=== PATIENT | female | born 1970 | race Caucasian/White ===

== ENCOUNTER 2016-08-17 05:44 | Emergency (ER) | payer OTHER ==
[~2016-08-17] VITALS: Ht 152.4 cm; Wt 61.2 kg
[2016-08-17 05:48] VITALS: BP 150/78
--- NOTE | 2016-08-17 05:54 | NUR ---
PATIENT AMBULATED TO ER BED 7.
--- NOTE | 2016-08-17 06:02 | NUR ---
46/F CAME IN TO ER WITH C/O LOWER BACK PAIN X1 WK. NO TRAUMA NOR INJURY. WENT TO URGENT CARE, GOT TRAMADOL, TODAY PAIN WORSEN. HX. FIBROMYALGIA, ARTHRITIS. PAIN SCALE 10/10, ACHING, STABBING RADIATING TO BILATERAL LOWER EXTREMITIES. SKIN IS PINK/WARM/DRY; AAOX4 WITH EVEN AND STEADY GAIT; LUNGS CLEAR BL; HR EVEN AND REGULAR; PATIENT POSITIONED FOR COMFORT; HOB ELEVATED; BEDRAILS UP X2; BED DOWN. ER MD MADE AWARE OF PT STATUS.
--- NOTE | 2016-08-17 06:06 | NUR ---
DR. MASON AT BEDSIDE EVALUATING PT.
[2016-08-17] MEDS ORDERED: HYDROcodone/APAP 10/325 MG 1 TAB TAB PO STA (06:13)
[2016-08-17] MEDS ORDERED: CYCLOBENZAPRINE 10 MG TAB PO ONE (06:15)
[2016-08-17] MEDS ORDERED: IBUPROFEN 800 MG TAB PO ONE (06:15)
[2016-08-17] MEDS ORDERED: METHOCARBAMOL 500 MG TAB PO SCH (06:25)
--- NOTE | 2016-08-17 06:29 | NUR ---
MEDS GIVEN ORDERED. PT TOLERATED MEDS WELL.
--- NOTE | 2016-08-17 06:46 | NUR ---
DR. MASON AT BEDSIDE TALKING TO THE PATIENT.
--- NOTE | 2016-08-17 07:09 | NUR ---
PT COMPLAINT OF STOMACH PAIN. PT SAID SHE HAS GASTRITIS BUT FORGOT TO MENTION IT EARLIER. DR. MASON AWARE.
[2016-08-17] MEDS ORDERED: ALUMINUM HYD/MAG/SIMETHICONE 30 ML UDC PO ONE (07:10)
[2016-08-17 07:30] VITALS: BP 145/80
--- NOTE | 2016-08-17 07:30 | NUR ---
Patient discharged with v/s stable. Written and verbal after care instructions given and explained. Patient alert, oriented and verbalized understanding of instructions. Ambulatory with steady gait. All questions addressed prior to discharge. ID band removed. Patient advised to follow up with PMD. Rx of NORCO 10MG-325MG TAB 1 TAB EVERY 6 HOURS BY MOUTH, IBUPROFEN 800MG 1 TAB ORALLY 3 TIMES A DAY NEEDED FOR PAIN, ROBAXIN 750MG 1 TAB 4 TIMES A DAY NEEDED FOR PAIN given. Patient educated on indication of medication including possible reaction and side effects. Opportunity to ask questions provided and answered.
== END 2016-08-17 07:30 | disposition home or self-care (01) ==
LOC: MED 05:44
DX: M54.5 Low back pain (principal); M79.7 Fibromyalgia; I10 Essential (primary) hypertension; F17.210 Nicotine dependence, cigarettes, uncomplicated; M19.90 Unspecified osteoarthritis, unspecified site; Z88.0 Allergy status to penicillin; Z88.6 Allergy status to analgesic agent

== ENCOUNTER 2016-10-13 18:28 | Emergency (ER) | payer OTHER ==
[~2016-10-13] VITALS: Ht 152.4 cm; Wt 62.7 kg
[2016-10-13 18:35] VITALS: BP 134/83
--- NOTE | 2016-10-13 18:39 | NUR ---
PATIENT TO BED 8
--- NOTE | 2016-10-13 19:30 | NUR ---
Patient being evaluated by DR. QUEVEDO at bedside.
[2016-10-13] MEDS ORDERED: NACL 0.9% 1,000 ML IV ONE (19:33)
[2016-10-13] MEDS ORDERED: KETOROLAC 30 MG/ML VIAL IVP ONE (19:35)
--- NOTE | 2016-10-13 20:55 | NUR ---
46/F BIB FAMILY TO ED C/O BODY ACHES x LAST NIGHT 0100. PAIN 10/10 SHARP NON-RADIATING. DENIES INJURY OR TRAUMA. DENIES N/V/D; SKIN IS PINK/WARM/DRY; AAOX4 WITH EVEN AND STEADY GAIT; LUNGS CLEAR BL; HR EVEN AND REGULAR; PT DENIES ANY FEVER, CP, SOB, OR COUGH AT THIS TIME; PATIENT STATES PAIN OF 10/10 AT THIS TIME; VSS; PATIENT POSITIONED FOR COMFORT; HOB ELEVATED; BEDRAILS UP X2; BED DOWN. ER MD MADE AWARE OF PT STATUS.
[2016-10-13 20:56] LABS: ANION GAP 11.9 (8-16); CALCIUM 8.8 mg/dL (8.5-10.1); CARBON DIOXIDE 28.1 mmol/L (21-32); CREATININE 1.2 mg/dL (0.6-1.3)
[2016-10-13 21:02] LABS: ALBUMIN 3.8 g/dL (3.4-5.0); TOTAL BILIRUBIN 0.6 mg/dL (0.0-1.0)
[2016-10-13 21:10] VITALS: BP 120/79
--- NOTE | 2016-10-13 21:10 | NUR ---
Patient discharged with v/s stable. Written and verbal after care instructions given and explained. Patient alert, oriented and verbalized understanding of instructions. Ambulatory with steady gait. All questions addressed prior to discharge. ID band removed. Patient advised to follow up with PMD. Rx of NORCO 5MG-325MG Q4HRS PRN, ROBAXIN 500MG QID, NAPROSYN 500MG BID, given. Patient educated on indication of medication including possible reaction and side effects. Opportunity to ask questions provided and answered.
== END 2016-10-13 21:10 | disposition home or self-care (01) ==
LOC: MED 18:28
DX: M79.1 Myalgia (principal); I10 Essential (primary) hypertension; F17.210 Nicotine dependence, cigarettes, uncomplicated; Z90.49 Acquired absence of other specified parts of digestive tract; Z90.710 Acquired absence of both cervix and uterus; Z88.0 Allergy status to penicillin; Z88.5 Allergy status to narcotic agent
CPT/HCPCS: 36415; 80053; 81002; 81025; 96361; 96374; 99284; J1885; J7030

== ENCOUNTER 2016-11-10 00:40 | Emergency (ER) | payer OTHER ==
[~2016-11-10] VITALS: Ht 152.4 cm; Wt 63.0 kg
[2016-11-10 00:45] VITALS: BP 159/113
--- NOTE | 2016-11-10 01:07 | NUR ---
PT. AMBULATES TO ER OF 3
--- NOTE | 2016-11-10 01:11 | NUR ---
46Y/F PT. PRESENTS TO ED WITH C/O NON PRODUCTIVE COUGH X 2 DAYS. TOOK NIQUAL 1 HR AGO. HX. FIBROMYALGIA, ARTHRITIS. AAO X4, AMBULATORY WITH STEADY GAIT. RESPIRATIONS ROOM AIR, EVEN AND UNLABORED. BL LUNG CLEAR, C/O NON-PRODUCTIVE COUGH. SKIN WARM AND DRY. C/O CHEST TIGHNESS 12/14. VSS, ER MADE AWARE OF PT. STATUS.
--- NOTE | 2016-11-10 01:26 | NUR ---
Patient being evaluated by physician.
[2016-11-10 02:00] VITALS: BP 142/97
--- NOTE | 2016-11-10 02:00 | NUR ---
Patient discharged with v/s stable. Written and verbal after care instructions given and explained. Patient alert, oriented and verbalized understanding of instructions. Ambulatory with steady gait. All questions addressed prior to discharge. ID band removed. Patient advised to follow up with PMD. Rx of Phenergan with codeine syrup and Z-pack given. Patient educated on indication of medication including possible reaction and side effects. Opportunity to ask questions provided and answered.
== END 2016-11-10 02:00 | disposition home or self-care (01) ==
LOC: MED 00:40
DX: J06.9 Acute upper respiratory infection, unspecified (principal); F17.210 Nicotine dependence, cigarettes, uncomplicated; I10 Essential (primary) hypertension; M79.7 Fibromyalgia; Z88.0 Allergy status to penicillin; Z88.5 Allergy status to narcotic agent; Z90.49 Acquired absence of other specified parts of digestive tract; Z90.710 Acquired absence of both cervix and uterus
CPT/HCPCS: 99283

== ENCOUNTER 2017-04-11 02:59 | Emergency (ER) | payer OTHER ==
[~2017-04-11] VITALS: Ht 152.4 cm; Wt 63.5 kg
[2017-04-11 03:02] VITALS: BP 147/90
--- NOTE | 2017-04-11 03:08 | NUR ---
PT TAKEN TO BED 11
[2017-04-11] MEDS ORDERED: diphenhydrAMINE 50 MG/ML VIAL IM ONE (03:15)
[2017-04-11] MEDS ORDERED: PROCHLORPERAZINE 10 MG/2 ML VIAL IM ONE (03:15)
--- NOTE | 2017-04-11 04:00 | NUR ---
DPatient discharged with v/s stable. Written and verbal after care instructions given and explained. Patient alert, oriented and verbalized understanding of instructions. Ambulatory with steady gait. All questions addressed prior to discharge. ID band removed. Patient advised to follow up with PMD. Rx of BENADRYL AND COMPAZINE given. Patient educated on indication of medication including possible reaction and side effects. Opportunity to ask questions provided and answered.
[2017-04-11 04:04] VITALS: BP 138/72
== END 2017-04-11 04:00 | disposition home or self-care (01) ==
LOC: MED 02:59
DX: R51 Headache (principal); R11.0 Nausea; I10 Essential (primary) hypertension; Z88.0 Allergy status to penicillin; Z88.5 Allergy status to narcotic agent
CPT/HCPCS: 96372; 99284; J0780; J1200

== ENCOUNTER 2021-08-21 07:18 | Day surgery (SDC) | payer OTHER ==
[~2021-08-21] VITALS: Ht 152.4 cm; Wt 78.0 kg
[2021-08-21] MEDS ORDERED: diphenhydrAMINE 50 MG/ML VIAL ONE (08:07)
[2021-08-21] MEDS ORDERED: fentaNYL citrate 0.05 MG/ML VIAL ONE (08:08)
[2021-08-21] MEDS ORDERED: DIAZEPAM PFS 10 MG/2 ML SYR ONE (08:09)
[2021-08-21] MEDS ORDERED: MIDAZOLAM 5 MG/5 ML VIAL ONE (08:10)
[2021-08-21] MEDS ORDERED: fentaNYL citrate 0.05 MG/ML VIAL IVP ONE (17:00)
== END 2021-08-21 09:48 | disposition home or self-care (01) ==
LOC: MOR 07:18 → MMU 07:19 → MOR 09:48
PROVIDERS: ATTEND Internal Medicine Gastroenterology
DX: R10.9 Unspecified abdominal pain (principal); K63.5 Polyp of colon; K21.9 Gastro-esophageal reflux disease without esophagitis; M79.7 Fibromyalgia; K31.9 Disease of stomach and duodenum, unspecified; M06.9 Rheumatoid arthritis, unspecified; Z88.0 Allergy status to penicillin; Z88.5 Allergy status to narcotic agent; Z79.82 Long term (current) use of aspirin; Z79.899 Other long term (current) drug therapy; Z90.710 Acquired absence of both cervix and uterus; Z20.822 Contact with and (suspected) exposure to COVID-19
CPT/HCPCS: 43239; 45385; 81025; 87426; 88305; 88312; 88313; 88342; J1200; J2250; J3010; J3360; J7030